=== PATIENT | female | born 1960 | race American Indian/Alaskan Native ===

== ENCOUNTER 2020-12-03 09:46 | Inpatient (IN) | payer MEDICARE ==
--- NOTE | 2020-12-03 10:21 | Emergency Department Report ---
ED Chest Pain HPI - General Chief Complaint: Chest Pain Stated Complaint: CHEST PAIN Time Seen by Provider: 12/03/20 10:00 Source: patient, EMS Mode of arrival: Stretcher Limitations: No Limitations - History of Present Illness Initial Comments: This is a 60-year-old -[place] female presents to the emergency department via EMS from home with complaint of midsternal to left-sided chest pain with radiation to the neck that started around 7:30 AM this morning and woke her from sleep. At the time the patient says that the pain was worse with any type of exertion as she tried to make her bed. It is associated with some shortness of breath and diaphoresis. She did not take anything for symptoms prior to presentation but did receive a sublingual nitroglycerin and a full dose aspirin in route with EMS. At the time of my examination the patient says that her chest pain is about 5 out of 10 in intensity. No known alleviating factors. Patient was found to have a blood pressure of about 200/100 with EMS prior to the sublingual nitroglycerin. She has been out of her blood pressure medications for the past 4 to 5 days. Denies any tobacco or illicit drug use. No recent travel or sick contacts at home. - Related Data Allergies Allergy/AdvReac Type Severity Reaction Status Date / Time No Known Allergies Allergy Unverified 12/03/20 09:58 Heart Score - HEART Score History: Moderately suspicious EKG: Normal Age: 45-65 Risk factors: 1-2 risk factors Troponin: < normal limit HEART Score: 3 - EKG Read Time Time EKG Completed: 10:33 EKG Read Time: 10:35 - Critical Actions Critical Actions: 0-3 pts:0.9-1.7%risk of adverse cardiac event.Candidate for discharge ED Review of Systems ROS: Stated complaint: CHEST PAIN Other details as noted in HPI Comment: All other systems reviewed and negative Constitutional: diaphoresis. denies: fever Eyes: denies: eye pain, vision change ENT: denies: ear pain, throat pain Respiratory: shortness of breath. denies: cough Cardiovascular: chest pain. denies: palpitations, edema Gastrointestinal: denies: abdominal pain, vomiting Genitourinary: denies: dysuria, discharge Musculoskeletal: denies: back pain, arthralgia Skin: denies: rash, lesions Neurological: denies: headache, weakness ED Past Medical Hx - Past Medical History Previous Medical History?: Yes Hx Hypertension: Yes Additional medical history: Lupus - Social History Smoking Status: Never Smoker ED Physical Exam - General Limitations: No Limitations - Other Other exam information: GENERAL: The patient is well-developed well-nourished. HENT: Normocephalic. Atraumatic. Patient has moist mucous membranes. EYES: Extraocular motions are intact. NECK: Supple. Trachea is midline. CHEST/LUNGS: Clear to auscultation. There is no respiratory distress noted. HEART/CARDIOVASCULAR: Regular. There is no tachycardia. There is no murmur. ABDOMEN: Abdomen is soft, nontender. Patient has normal bowel sounds. There is no abdominal distention. SKIN: Skin is warm and dry. NEURO: The patient is awake, alert, and oriented. The patient is cooperative. The patient has no focal neurologic deficits. Normal speech. MUSCULOSKELETAL: There is no tenderness or deformity. There is no limitation range of motion. ED Course Vital Signs 12/03/20 12/03/20 09:48 10:42 Temperature 97.5 F L Pulse Rate 72 88 Respiratory 16 Rate Blood Pressure 160/80 O2 Sat by Pulse 95 Oximetry JEREMY score - Jeremy Score Age > 65: (0) No Aspirin use within the Past 7 Days: (0) No 3 or more CAD Risk Factors: (0) No 2 or more Angina events in past 24 hrs: (1) Yes Known CAD with more than 50% Stenosis: (0) No Elevated Cardiac Markers: (0) No ST Deviation Greater than 0.5mm: (0) No JEREMY Score: 1 ED Medical Decision Making - Lab Data Result diagrams: 12/03/20 10:42 12/03/20 10:42 Lab Results 12/03/20 12/03/20 12/03/20 Range/Units 10:42 10:42 10:42 WBC 4.6 (4.5-11.0) K/mm3 RBC 3.59 L (3.65-5.03) M/mm3 Hgb 10.4 (10.1-14.3) gm/dl Hct 31.1 (30.3-42.9) % MCV 87 (79-97) fl MCH 29 (28-32) pg MCHC 33 (30-34) % RDW 14.8 (13.2-15.2) % Plt Count 320 (140-440) K/mm3 Lymph % (Auto) 26.3 (13.4-35.0) % [place] % (Auto) 10.6 H (0.0-7.3) % Eos % (Auto) 0.6 (0.0-4.3) % Baso % (Auto) 0.7 (0.0-1.8) % Lymph # (Auto) 1.2 (1.2-5.4) K/mm3 [place] # (Auto) 0.5 (0.0-0.8) K/mm3 Eos # (Auto) 0.0 (0.0-0.4) K/mm3 Baso # (Auto) 0.0 (0.0-0.1) K/mm3 Seg Neutrophils % 61.8 (40.0-70.0) % Seg Neutrophils # 2.9 (1.8-7.7) K/mm3 D-Dimer 149.05 (0-234) ng/mlDDU Sodium 143 (137-145) mmol/L Potassium 4.1 (3.6-5.0) mmol/L Chloride 104.2 (98-107) mmol/L Carbon Dioxide 26 (22-30) mmol/L Anion Gap 17 mmol/L BUN 20 H (7-17) mg/dL Creatinine 0.8 (0.6-1.2) mg/dL Estimated GFR > 60 ml/min BUN/Creatinine Ratio 25 % Glucose 92 (65-100) mg/dL Calcium 8.9 (8.4-10.2) mg/dL Total Bilirubin 0.30 (0.1-1.2) mg/dL AST 19 (5-40) units/L ALT 12 (7-56) units/L Alkaline Phosphatase 44 (35-129) units/L Troponin T < 0.010 (0.00-0.029) ng/mL Total Protein 7.8 (6.3-8.2) g/dL Albumin 4.3 (3.9-5) g/dL Albumin/Globulin Ratio 1.2 % - EKG Data -: EKG Interpreted by Mt EKG shows normal: sinus rhythm, axis, intervals, QRS complexes, ST-T waves Rate: bradycardia (56 bpm) - EKG Data When compared to previous EKG there are: previous EKG unavailable Interpretation: normal EKG - Radiology Data Radiology results: image reviewed interpreted by me: Chest x-ray does not show any acute process. There are no pleural effusions, obvious pneumonia and there is no pneumothorax. No significant cardiomegaly. - Medical Decision Making This patient woke from sleep with some left-sided chest pain with radiation towards her neck. She also had a very elevated blood pressure with a systolic of greater than 200. She was given full dose aspirin and a sublingual nitroglycerin. EKG did not have any morphology consistent with ST elevation myocardial infarction. Chest x-ray does not show any pneumonia, pleural effusions, pneumothorax, or any acute process. Patient's labs have been unremarkable thus far including CBC, metabolic panel and a negative troponin. Patient has a moderate heart score. She was given some IV analgesia and blood pressure control. She still continues to have some discomfort. For these reasons the patient will be admitted to the hospital for further evaluation and treatment and was accepted for admission by the hospitalist, Dr. Sheehan. Critical Care Time: No Critical care attestation.: If time is entered above; I have spent that time in minutes in the direct care of this critically ill patient, excluding procedure time. ED Disposition Clinical Impression: Acute chest pain Hypertension Qualifiers: Hypertension type: essential hypertension Qualified Code(s): I10 - Essential (primary) hypertension Disposition: OP ADMIT IP TO THIS HOSP Is pt being admited?: Yes Condition: Fair Instructions: Chest Pain (ED), Hypertension (ED) Time of Disposition: 13:00
--- NOTE | 2020-12-03 11:02 | XRay Report ---
CHEST 1 VIEW 12/03/2020 10:27 AM INDICATION / CLINICAL INFORMATION: CP. COMPARISON: None available. FINDINGS: SUPPORT DEVICES: None. HEART / MEDIASTINUM: No significant abnormality. LUNGS / PLEURA: No significant pulmonary or pleural abnormality. No pneumothorax. ADDITIONAL FINDINGS: No significant additional findings. IMPRESSION: 1. No acute findings. Signer Name: Hipolito Kearney MD Signed: 12/03/2020 10:57 AM Workstation Name: [email or web address]
[2020-12-03 11:23] LABS: Basophils % (Auto) 0.7 % (0.0-1.8); Eosinophils % (Auto) 0.6 % (0.0-4.3); Hematocrit 31.1 % (30.3-42.9); Hemoglobin 10.4 gm/dl (10.1-14.3); Lymphocytes # (Auto) 1.2 K/mm3 (1.2-5.4); Lymphocytes % (Auto) 26.3 % (13.4-35.0); Mean Corpuscular HGB Conc 33 % (30-34); Mean Corpuscular Volume 87 fl (79-97); Monocytes # (Auto) 0.5 K/mm3 (0.0-0.8); Monocytes % (Auto) 10.6 % (0.0-7.3); Platelet Count 320 K/mm3 (140-440); Red Blood Count 3.59 M/mm3 (3.65-5.03); Red Cell Distribution Width 14.8 % (13.2-15.2)
[2020-12-03 12:00] LABS: Alanine Aminotransferase 12 units/L (7-56); Albumin 4.3 g/dL (3.9-5); BUN/Creatinine Ratio 25; Blood Urea Nitrogen 20 mg/dL (7-17); Calcium 8.9 mg/dL (8.4-10.2); Hemolysis Index 1
[2020-12-03] MEDS ORDERED: METOPROLOL TARTRATE 5 MG/5 ML INJ IV ONE (12:19)
[2020-12-03] MEDS ORDERED: MORPHINE 4 MG/1 ML INJ IV ONE (12:19)
--- NOTE | 2020-12-03 23:17 | History and Physical Report ---
History of Present Illness Date of examination: 12/03/20 Date of admission: 12/03/20 13:01 Chief complaint: Chest pain for 1 day History of present illness: 60-year-old -Finnish female with history of hypertension and lupus comes in for left-sided chest pain and retrosternal chest pain that started around 730 this morning. Woke her up from sleep. Pain is intermittent. Pain is about 8 on a scale of 1-10. Blood pressure is also high at the time of admission to the emergency room. Blood pressure was 200/100. Patient states that she is compliant with her blood pressure medications. Patient did not have any stents in the past. No exposure to coronavirus. Heart Score - HEART Score History: Moderately suspicious EKG: Normal Age: 45-65 Risk factors: 1-2 risk factors Troponin: < normal limit HEART Score: 3 - EKG Read Time EKG normal sinus rhythm LVH by voltage criteria no acute ST-T wave changes EKG Completed: 10:33 - Critical Actions Critical Actions: 0-3 pts:0.9-1.7%risk of adverse cardiac event.Candidate for discharge - Past Medical History Previous Medical History?: Yes Hx Hypertension: Yes Additional medical history: Lupus past surgical history none family history - Social History Smoking Status: Never Smoker family history HTN Review of Systems ROS: Stated complaint: CHEST PAIN Other details as noted in HPI Comment: All other systems reviewed and negative Constitutional: diaphoresis. denies: fever Eyes: denies: eye pain, vision change ENT: denies: ear pain, throat pain Respiratory: shortness of breath. denies: cough Cardiovascular: chest pain. denies: palpitations, edema Gastrointestinal: denies: abdominal pain, vomiting Genitourinary: denies: dysuria, discharge Musculoskeletal: denies: back pain, arthralgia Skin: denies: rash, lesions Neurological: denies: headache, weakness Medications and Allergies Allergies Allergy/AdvReac Type Severity Reaction Status Date / Time No Known Allergies Allergy Verified 12/03/20 23:36 Home Medications Medication Instructions Recorded Confirmed Last Taken Type No Known Home Medications [No 12/05/20 12/05/20 Unknown History Reported Home Medications] Exam - Constitutional Vitals: Temp Pulse Resp BP Pulse Ox 97.6 F 56 L 16 125/48 100 12/03/20 20:48 12/03/20 20:48 12/03/20 20:48 12/03/20 20:48 12/03/20 20:48 General appearance: Present: no acute distress, well-nourished - EENT Eyes: Present: PERRL ENT: hearing intact, clear oral mucosa - Neck Neck: Present: supple, normal ROM - Respiratory Respiratory effort: normal Respiratory: bilateral: CTA - Cardiovascular Heart rate: 78 Rhythm: regular Heart Sounds: Present: S1 & S2. Absent: rub, click - Extremities Extremities: pulses symmetrical, No edema Peripheral Pulses: within normal limits - Abdominal General gastrointestinal: Present: soft, non-tender, non-distended, normal bowel sounds Female genitourinary: Present: normal - Integumentary Integumentary: Present: clear, warm, dry - Musculoskeletal Musculoskeletal: gait normal, strength equal bilaterally - Psychiatric Psychiatric: appropriate mood/affect, intact judgment & insight - Neurologic Neurologic: CNII-XII intact, moves all extremities HEART Score - HEART Score EKG: Normal Age: 45-65 Risk factors: 1-2 risk factors Troponin: Troponin T < 0.010 ng/mL (0.00-0.029) 12/03/20 16:30 Troponin: < normal limit - Critical Actions Critical Actions: 0-3 pts:0.9-1.7%risk of adverse cardiac event.Candidate for discharge Results - Labs CBC & Chem 7: 12/05/20 04:07 12/05/20 04:07 Labs: Laboratory Last Values WBC 4.6 K/mm3 (4.5-11.0) 12/03/20 10:42 RBC 3.59 M/mm3 (3.65-5.03) L 12/03/20 10:42 Hgb 10.4 gm/dl (10.1-14.3) 12/03/20 10:42 Hct 31.1 % (30.3-42.9) 12/03/20 10:42 MCV 87 fl (79-97) 12/03/20 10:42 MCH 29 pg (28-32) 12/03/20 10:42 MCHC 33 % (30-34) 12/03/20 10:42 RDW 14.8 % (13.2-15.2) 12/03/20 10:42 Plt Count 320 K/mm3 (140-440) 12/03/20 10:42 Lymph % (Auto) 26.3 % (13.4-35.0) 12/03/20 10:42 [place] % (Auto) 10.6 % (0.0-7.3) H 12/03/20 10:42 Eos % (Auto) 0.6 % (0.0-4.3) 12/03/20 10:42 Baso % (Auto) 0.7 % (0.0-1.8) 12/03/20 10:42 Lymph # (Auto) 1.2 K/mm3 (1.2-5.4) 12/03/20 10:42 [place] # (Auto) 0.5 K/mm3 (0.0-0.8) 12/03/20 10:42 Eos # (Auto) 0.0 K/mm3 (0.0-0.4) 12/03/20 10:42 Baso # (Auto) 0.0 K/mm3 (0.0-0.1) 12/03/20 10:42 Seg Neutrophils % 61.8 % (40.0-70.0) 12/03/20 10:42 Seg Neutrophils # 2.9 K/mm3 (1.8-7.7) 12/03/20 10:42 D-Dimer 149.05 ng/mlDDU (0-234) 12/03/20 10:42 Sodium 143 mmol/L (137-145) 12/03/20 10:42 Potassium 4.1 mmol/L (3.6-5.0) 12/03/20 10:42 Chloride 104.2 mmol/L (98-107) 12/03/20 10:42 Carbon Dioxide 26 mmol/L (22-30) 12/03/20 10:42 Anion Gap 17 mmol/L 12/03/20 10:42 BUN 20 mg/dL (7-17) H 12/03/20 10:42 Creatinine 0.8 mg/dL (0.6-1.2) 12/03/20 10:42 Estimated GFR > 60 ml/min 12/03/20 10:42 BUN/Creatinine Ratio 25 % 12/03/20 10:42 Glucose 92 mg/dL (65-100) 12/03/20 10:42 Calcium 8.9 mg/dL (8.4-10.2) 12/03/20 10:42 Total Bilirubin 0.30 mg/dL (0.1-1.2) 12/03/20 10:42 AST 19 units/L (5-40) 12/03/20 10:42 ALT 12 units/L (7-56) 12/03/20 10:42 Alkaline Phosphatase 44 units/L (35-129) 12/03/20 10:42 Troponin T < 0.010 ng/mL (0.00-0.029) 12/03/20 16:30 Total Protein 7.8 g/dL (6.3-8.2) 12/03/20 10:42 Albumin 4.3 g/dL (3.9-5) 12/03/20 10:42 Albumin/Globulin Ratio 1.2 % 12/03/20 10:42 Short CBC 12/05/20 Range/Units 04:07 WBC 4.7 (4.5-11.0) K/mm3 Hgb 9.4 L (10.1-14.3) gm/dl Hct 28.8 L (30.3-42.9) % Plt Count 305 (140-440) K/mm3 BMP 12/05/20 04:07 Sodium 139 Potassium 4.1 Chloride 105.0 Carbon Dioxide 28 BUN 14 Creatinine 0.8 Glucose 93 Calcium 8.5 - Imaging and Cardiology EKG: report reviewed (Sinus rhythm, LVH by voltage criteria) Assessment and Plan Advance Directives: Yes - Patient Problems (1) Acute coronary syndrome Current Visit: Yes Status: Acute Plan to address problem: Chest pain work-up Patient to get Lexiscan tomorrow morning Serial troponins (2) Hypertension Current Visit: Yes Status: Acute Qualifiers: Hypertension type: essential hypertension Qualified Code(s): I10 - Essential (primary) hypertension Plan to address problem: Patient initial blood pressure was high but normalized in the emergency room We will trend the blood pressure and initiate initiate bladder BP medications as necessary Patient on amlodipine 10 mg once a day (3) DVT prophylaxis Current Visit: Yes Status: Acute Plan to address problem: On heparin and GI prophylaxis
[2020-12-03] MEDS ORDERED: MORPHINE 2 MG/1 ML INJ IV PRN (23:19)
[2020-12-03] MEDS ORDERED: ONDANSETRON 4 MG/2 ML INJ IV PRN (23:19)
[2020-12-03] MEDS ORDERED: ACETAMINOPHEN 325 MG TAB PO PRN (23:19)
[2020-12-03] MEDS ORDERED: oxyCODONE /ACETAMINOPHEN 5-325MG TAB PO PRN (23:19)
[2020-12-03] MEDS ORDERED: ZOLPIDEM 5 MG TAB PO PRN (23:19)
[2020-12-04] MEDS: HEPARIN 5,000 UNIT/1 ML VIAL SUB-Q SCH ×3 (05:23→22:12)
[2020-12-04] MEDS: SODIUM CHLORIDE 0.9% 1000 ML 1,000 ML IV SCH (05:24)
[2020-12-04 06:26] LABS: Alanine Aminotransferase 10 units/L (7-56); Albumin 3.6 g/dL (3.9-5); BUN/Creatinine Ratio 25; Blood Urea Nitrogen 20 mg/dL (7-17); Calcium 8.4 mg/dL (8.4-10.2); Hemolysis Index 10
[2020-12-04] MEDS: FAMOTIDINE 20 MG TAB PO SCH ×2 (10:20→22:12)
--- NOTE | 2020-12-04 11:32 | Consultation ---
History of Present Illness Consult date: 12/04/20 Consult reason: chest pain History of present illness: Patient is a 60-year old F admitted with chest pain. Chest pain is poorly characterized, intermittent for several weeks, at times on exertion. Noted hypertensive on presentation with a systolic BP of 160. An ECG is sinus bradycardia, rate 56, otherwise normal. Chest x-ray was normal. Cycled troponin measurements were also normal. Medications and Allergies Allergies Allergy/AdvReac Type Severity Reaction Status Date / Time No Known Allergies Allergy Verified 12/03/20 23:36 Active Meds: Active Medications Acetaminophen (Acetaminophen 325 Mg Tab) 650 mg PO Q4H PRN PRN Reason: Pain MILD(1-3)/Fever >100.5/GACRIA Famotidine (Famotidine 20 Mg Tab) 20 mg PO BID [facility] Last Admin: 12/04/20 10:20 Dose: 20 mg Documented by: Heparin Sodium (Porcine) (Heparin 5,000 Unit/1 Ml Vial) 5,000 unit SUB-Q Q12HR [facility] Last Admin: 12/04/20 10:21 Dose: 5,000 unit Documented by: Sodium Chloride (Nacl 0.9% 1000 Ml) 1,000 mls @ 42 mls/hr IV DIRECT [facility] Last Admin: 12/04/20 05:24 Dose: 42 mls/hr Documented by: Morphine Sulfate (Morphine 2 Mg/1 Ml Inj) 2 mg IV Q4H PRN PRN Reason: Pain, Moderate (4-6) Ondansetron HCl (Ondansetron 4 Mg/2 Ml Inj) 4 mg IV Q8H PRN PRN Reason: Nausea And Vomiting Oxycodone/Acetaminophen (Oxycodone /Acetaminophen 5-325mg Tab) 1 tab PO Q6H PRN PRN Reason: Pain, Moderate (4-6) Sodium Chloride (Sodium Chloride 0.9% 10 Ml Flush Syringe) 10 ml IV BID [facility] Last Admin: 12/04/20 10:21 Dose: 10 ml Documented by: Sodium Chloride (Sodium Chloride 0.9% 10 Ml Flush Syringe) 10 ml IV PRN PRN PRN Reason: LINE FLUSH Zolpidem Tartrate (Zolpidem 5 Mg Tab) 5 mg PO QHS PRN PRN Reason: Insomnia Physical Examination Vital Signs Temp Pulse Resp BP Pulse Ox 97.5 F L 72 16 160/80 95 12/03/20 09:48 12/03/20 09:48 12/03/20 09:48 12/03/20 09:48 12/03/20 09:48 Results 12/03/20 10:42 12/04/20 04:48 Cardiac Enzymes 12/03/20 12/04/20 Range/Units 10:42 04:48 AST 19 17 (5-40) units/L Comprehensive Metabolic Panel 12/03/20 12/04/20 Range/Units 10:42 04:48 Sodium 143 137 (137-145) mmol/L Potassium 4.1 4.0 (3.6-5.0) mmol/L Chloride 104.2 102.2 (98-107) mmol/L Carbon Dioxide 26 26 (22-30) mmol/L BUN 20 H 20 H (7-17) mg/dL Creatinine 0.8 0.8 (0.6-1.2) mg/dL Glucose 92 94 (65-100) mg/dL Calcium 8.9 8.4 (8.4-10.2) mg/dL AST 19 17 (5-40) units/L ALT 12 10 (7-56) units/L Alkaline Phosphatase 44 41 (35-129) units/L Total Protein 7.8 6.9 (6.3-8.2) g/dL Albumin 4.3 3.6 L (3.9-5) g/dL
--- NOTE | 2020-12-04 11:32 | Consultation ---
History of Present Illness Consult date: 12/04/20 Consult reason: chest pain History of present illness: The patient is a 60-year-old woman with history of chronic hypertension, no p rior cardiac history. She presented to the hospital with chest pain which she states woke her up from sleep. The pain was located in the left chest, radiated to the left arm and up into the left side of her face. In addition, she states that over the past several weeks, the pain has frequently recurred in association with exertional activities such as walking. She was seen in the emergency room, evaluated and referred for admission. EKG in the emergency was a sinus bradycardia 56, otherwise normal ECG with no ST changes of ischemia. Serial troponin levels x3 were normal. She was ordered for an exercise thallium stress test which is pending. Past History Past Medical History: hypertension Medications and Allergies Allergies Allergy/AdvReac Type Severity Reaction Status Date / Time No Known Allergies Allergy Verified 12/03/20 23:36 Active Meds: Active Medications Acetaminophen (Acetaminophen 325 Mg Tab) 650 mg PO Q4H PRN PRN Reason: Pain MILD(1-3)/Fever >100.5/GARCIA Famotidine (Famotidine 20 Mg Tab) 20 mg PO BID [facility] Last Admin: 12/04/20 10:20 Dose: 20 mg Documented by: Heparin Sodium (Porcine) (Heparin 5,000 Unit/1 Ml Vial) 5,000 unit SUB-Q Q12HR [facility] Last Admin: 12/04/20 10:21 Dose: 5,000 unit Documented by: Sodium Chloride (Nacl 0.9% 1000 Ml) 1,000 mls @ 42 mls/hr IV DIRECT [facility] Last Admin: 12/04/20 05:24 Dose: 42 mls/hr Documented by: Morphine Sulfate (Morphine 2 Mg/1 Ml Inj) 2 mg IV Q4H PRN PRN Reason: Pain, Moderate (4-6) Ondansetron HCl (Ondansetron 4 Mg/2 Ml Inj) 4 mg IV Q8H PRN PRN Reason: Nausea And Vomiting Oxycodone/Acetaminophen (Oxycodone /Acetaminophen 5-325mg Tab) 1 tab PO Q6H PRN PRN Reason: Pain, Moderate (4-6) Sodium Chloride (Sodium Chloride 0.9% 10 Ml Flush Syringe) 10 ml IV BID [facility] Last Admin: 12/04/20 10:21 Dose: 10 ml Documented by: Sodium Chloride (Sodium Chloride 0.9% 10 Ml Flush Syringe) 10 ml IV PRN PRN PRN Reason: LINE FLUSH Zolpidem Tartrate (Zolpidem 5 Mg Tab) 5 mg PO QHS PRN PRN Reason: Insomnia Review of Systems Cardiovascular: chest pain, shortness of breath, no orthopnea, no palpitations, no rapid/irregular heart beat, no edema, no syncope, no lightheadedness Physical Examination Vital Signs Temp Pulse Resp BP Pulse Ox 97.5 F L 72 16 160/80 95 12/03/20 09:48 12/03/20 09:48 12/03/20 09:48 12/03/20 09:48 12/03/20 09:48 General appearance: no acute distress HEENT: Positive: PERRL Neck: Positive: neck supple, trachea midline Cardiac: Positive: Reg Rate and Rhythm Lungs: Positive: clear to auscultation Neuro: Positive: Grossly Intact Abdomen: Positive: Soft Female genitourinary: deferred Skin: Positive: Clear Extremities: Absent: edema Results 12/03/20 10:42 12/04/20 04:48 Cardiac Enzymes 12/03/20 12/04/20 Range/Units 10:42 04:48 AST 19 17 (5-40) units/L Comprehensive Metabolic Panel 12/03/20 12/04/20 Range/Units 10:42 04:48 Sodium 143 137 (137-145) mmol/L Potassium 4.1 4.0 (3.6-5.0) mmol/L Chloride 104.2 102.2 (98-107) mmol/L Carbon Dioxide 26 26 (22-30) mmol/L BUN 20 H 20 H (7-17) mg/dL Creatinine 0.8 0.8 (0.6-1.2) mg/dL Glucose 92 94 (65-100) mg/dL Calcium 8.9 8.4 (8.4-10.2) mg/dL AST 19 17 (5-40) units/L ALT 12 10 (7-56) units/L Alkaline Phosphatase 44 41 (35-129) units/L Total Protein 7.8 6.9 (6.3-8.2) g/dL Albumin 4.3 3.6 L (3.9-5) g/dL EKG interpretations - Telemetry EKG Rhythm: Sinus Bradycardia (Otherwise normal ECG) Assessment and Plan - Patient Problems (1) Chest pain Current Visit: Yes Status: Acute Plan to address problem: Patients presents with chest pain with a possible exertional component, but ECGs are not troponin levels are normal. We will proceed with an exercise thallium stress test for further chest pain assessment. Further cardiac evaluation will depend on the findings of the stress test.
[2020-12-04] MEDS ORDERED: FLU VACC QUAD 2020-2021 (6 months +)/PF 60 0.5 ML SYRINGE IM ONE (12:00)
[2020-12-04] MEDS ORDERED: NITROGLYCERIN 0.4 MG TAB SUBL SL ONE ×2 (13:42→14:47)
--- NOTE | 2020-12-04 13:44 | Event Note ---
Date: 12/04/20 The patient exercised for less than 2 minutes of a New protocol, developed what she describes as chest tightness, and the blood pressure shot up to 190 systolic. EKG showed no ischemic changes, but we stopped the exercise study due to poor exercise tolerance, hypertensive response to exercise and the development of chest pain. The patient will instead be recommended to undergo diagnostic heart catheterization for further cardiac assessment. Cardiac catheterization is scheduled for tomorrow morning.
[2020-12-04] MEDS ORDERED: SODIUM CHLORIDE 0.9% 500 ML 500 ML IV SCH (14:00)
[2020-12-04] MEDS: METOPROLOL TARTRATE 25 MG TAB PO SCH ×2 (14:21→22:11)
[2020-12-04] MEDS: amLODIPine 5 MG TAB PO SCH (14:21)
[2020-12-04] MEDS: ASPIRIN EC 325 MG TAB PO SCH (14:21)
[2020-12-04] MEDS: NITROGLYCERIN 2% OINT 1 GM TP SCH ×2 (14:22→17:16)
--- NOTE | 2020-12-04 17:21 | Progress Note ---
Assessment and Plan - Patient Problems (1) Acute coronary syndrome Current Visit: Yes Status: Acute Plan to address problem: Chest pain work-up Patient to get Lexiscan tomorrow morning Serial troponins (2) Hypertension Current Visit: Yes Status: Acute Qualifiers: Hypertension type: essential hypertension Qualified Code(s): I10 - Essential (primary) hypertension Plan to address problem: Patient initial blood pressure was high but normalized in the emergency room We will trend the blood pressure and initiate initiate bladder BP medications as necessary Patient on amlodipine 10 mg once a day (3) DVT prophylaxis Current Visit: Yes Status: Acute Plan to address problem: On heparin and GI prophylaxis Subjective Date of service: 12/04/20 Principal diagnosis: Acute coronary syndrome Interval history: 60-year-old -[place] female with history of hypertension and lupus comes in for left-sided chest pain and retrosternal chest pain that started around 730 this morning. Woke her up from sleep. Pain is intermittent. Pain is about 8 on a scale of 1-10. Blood pressure is also high at the time of admission to the emergency room. Blood pressure was 200/100. Patient states that she is compliant with her blood pressure medications. Patient did not have any stents in the past. No exposure to coronavirus. Day #2 12/04/2020 Patient had a high blood pressure response with stress test 2 minutes into the stress test Decided to do cardiac cath by Dr. Faust Objective - Constitutional Vitals: Vital Signs - 12hr 12/04/20 12/04/20 12/04/20 08:25 09:00 10:00 Temperature 97.7 F Pulse Rate 56 L 60 Pulse Rate [ 60 Left Radial] Pulse Rate [ 62 Right Radial] Respiratory 18 19 Rate Blood Pressure 145/62 O2 Sat by Pulse 100 Oximetry 12/04/20 12/04/20 12/04/20 13:47 14:13 14:21 Temperature Pulse Rate 67 68 62 Pulse Rate [ Left Radial] Pulse Rate [ Right Radial] Respiratory Rate Blood Pressure 191/65 178/87 178/87 O2 Sat by Pulse 100 Oximetry 12/04/20 12/04/20 12/04/20 14:22 16:00 16:40 Temperature 98.9 F 97.3 F L Pulse Rate 62 53 L Pulse Rate [ Left Radial] Pulse Rate [ Right Radial] Respiratory 18 18 Rate Blood Pressure 178/87 125/57 O2 Sat by Pulse 100 Oximetry 12/04/20 17:16 Temperature Pulse Rate 66 Pulse Rate [ Left Radial] Pulse Rate [ Right Radial] Respiratory Rate Blood Pressure 127/67 O2 Sat by Pulse Oximetry General appearance: Present: no acute distress, well-nourished - EENT Eyes: PERRL, EOM intact ENT: hearing intact, clear oral mucosa Ears: bilateral: normal - Neck Neck: supple, normal ROM - Respiratory Respiratory effort: normal Respiratory: bilateral: CTA - Breasts Breasts: normal - Cardiovascular Heart rate: 78 Rhythm: regular Heart Sounds: Present: S1 & S2. Absent: gallop, rub Extremities: pulses intact, No edema, normal color, Full ROM - Gastrointestinal General gastrointestinal: Present: soft, non-tender, non-distended, normal bowel sounds - Genitourinary Female genitourinary: normal - Integumentary Integumentary: clear, warm, dry - Musculoskeletal Musculoskeletal: 1, strength equal bilaterally - Neurologic Neurologic: moves all extremities - Psychiatric Psychiatric: memory intact, appropriate mood/affect, intact judgment & insight - Labs CBC & Chem 7: 12/05/20 04:07 12/05/20 04:07 Labs: Abnormal lab results 12/04/20 Range/Units 04:48 BUN 20 H (7-17) mg/dL Albumin 3.6 L (3.9-5) g/dL HEART Score - HEART Score EKG: Normal Age: 45-65 Risk factors: 1-2 risk factors Troponin: Troponin T < 0.010 ng/mL (0.00-0.029) 12/03/20 16:30 Troponin: < normal limit - Critical Actions Critical Actions: 0-3 pts:0.9-1.7%risk of adverse cardiac event.Candidate for discharge
[2020-12-05 04:46] LABS: Hematocrit 28.8 % (30.3-42.9); Hemoglobin 9.4 gm/dl (10.1-14.3); Mean Corpuscular HGB Conc 33 % (30-34); Mean Corpuscular Volume 87 fl (79-97); Platelet Count 305 K/mm3 (140-440); Red Blood Count 3.31 M/mm3 (3.65-5.03); Red Cell Distribution Width 14.8 % (13.2-15.2)
[2020-12-05 04:59] LABS: INR 1.13 (0.87-1.13)
[2020-12-05 05:00] LABS: Partial Thromboplastin Time 44.2 Sec. (24.2-36.6)
[2020-12-05 05:05] LABS: BUN/Creatinine Ratio 18; Blood Urea Nitrogen 14 mg/dL (7-17); Calcium 8.5 mg/dL (8.4-10.2); Hemolysis Index 2
[2020-12-05] MEDS: NITROGLYCERIN 2% OINT 1 GM TP SCH ×3 (05:18→18:52)
[2020-12-05] MEDS: SODIUM CHLORIDE 0.9% 1000 ML 1,000 ML IV SCH (06:06)
[2020-12-05] MEDS: ASPIRIN EC 325 MG TAB PO SCH ×2 (07:14→14:27)
[2020-12-05] MEDS ORDERED: HEPARIN/NS 5000 UNIT/500ML 1,000 ML IR ONE (08:23)
[2020-12-05] MEDS ORDERED: VERAPAMIL 5 MG/2 ML INJ ONE (08:24)
[2020-12-05] MEDS ORDERED: HEPARIN 10,000 UNITS/10 ML VIAL ONE (08:24)
[2020-12-05] MEDS ORDERED: NITROGLYCERIN SYRINGE 3 ML ONE (08:25)
[2020-12-05] MEDS ORDERED: LIDOCAINE (2%) 20 MG/1 ML VIAL 20 ML MDV INFILTRATI ONE (08:25)
[2020-12-05] MEDS ORDERED: MIDAZOLAM 2 MG/2 ML INJ ONE (08:44)
[2020-12-05] MEDS ORDERED: fentaNYL 100 MCG/2 ML INJ ONE (08:44)
[2020-12-05] MEDS ORDERED: NITROGLYCERIN 600 MCG/3 ML SYRINGE ART-SHEATH ONE (09:26)
--- NOTE | 2020-12-05 09:54 | Event Note ---
Date: 12/05/20 Patient underwent a cardiac catheterization, via the right radial approach, no complications. We found essentially angiographically normal coronary arteries, and well-preserved left ventricular systolic function, ejection fraction 50 to 55%. No further cardiac work-up, patient is stable for cardiac discharge. If indicated, patient should undergo work-up for noncardiac causes of chest pain.
[2020-12-05] MEDS ORDERED: SODIUM CHLORIDE 0.9% 1000 ML 1,000 ML IV SCH (10:00)
--- NOTE | 2020-12-05 10:02 | Cardiac Catherization Report ---
DATE OF SERVICE: 12/05/2020 REASON FOR STUDY: The patient is a 60-year-old woman who presented to the hospital with progressive, exertional chest pain. She had poor exercise tolerance on an exercise treadmill, complaining of chest pain, prompting a recommendation for cardiac catheterization. PROCEDURES PERFORMED: 1. Left heart catheterization. 2. Selective left and right coronary angiography. 3. Left ventricular angiography. 4. Sedation time start 0924 hours, end 0935 hours. I was present for the entire procedure and supervised with moderate sedation protocol. DESCRIPTION OF PROCEDURE: The patient was prepped and draped in a sterile fashion after informed consent. The right radial catheterization site was prepped and draped after a negative Rachid's test. The right radial artery was entered using Seldinger technique followed by placement of a 6-[place] hydrophilic sheath. Routine radial cocktail was administered via the sheath. Selective left and right coronary angiography was performed using a #3.5 left Zackary and a #4 right Zackary. The right Zackary was used for left ventricular angiography. Catheters were then removed, sheath removed and hemostasis achieved using a TR band. The patient was returned to the post-procedure unit in stable condition. There were no complications. FINDINGS: HEMODYNAMICS: Left ventricular end diastolic pressure was 17, following coronary angiography. The ascending aortic pressure was 167/64. There was no significant pressure gradient on pullback across the aortic valve. CORONARY ANGIOGRAPHY: Left main coronary artery was angiographically normal. The left anterior descending artery and its diagonal branches were angiographically normal. The circumflex artery and its obtuse marginal branches were angiographically normal. The right coronary artery contained mild eccentric narrowing of its mid segment, but otherwise angiographically normal. Left ventricular systolic function was at lower limits of normal, ejection fraction 50-55%. CONCLUSION: 1. Essentially angiographically normal coronary arteries. 2. Normal left ventricular systolic function, ejection fraction 50-55%. RECOMMENDATIONS: Risk factor modification, evaluate the patient if indicated for noncardiac chest pain. TID: [id number] RECEIPT: [id number] CA/KDA
[2020-12-05] MEDS ORDERED: traMADol 50 MG TAB PO PRN (10:30)
[2020-12-05] MEDS: FAMOTIDINE 20 MG TAB PO SCH (10:47)
[2020-12-05] MEDS: HEPARIN 5,000 UNIT/1 ML VIAL SUB-Q SCH (10:47)
[2020-12-05] MEDS: amLODIPine 5 MG TAB PO SCH (10:47)
[2020-12-05] MEDS: METOPROLOL TARTRATE 25 MG TAB PO SCH (14:27)
--- NOTE | 2020-12-05 16:54 | Discharge Summary ---
Providers - Providers Date of Admission: 12/04/20 15:00 Date of discharge: 12/05/20 Attending physician: ERIC WEBSTER 12/03/20 23:19 Consult to Physician [CONS] Routine Comment: Consulting Provider: EMMY KEY Physician Instructions: Reason For Exam: Acute coronary syndrome 12/05/20 09:51 Consult to Cardiac Rehabilitation [CONS] Routine Reason For Exam: Cardiac Rehab Evaluation Primary care physician: ANDROID UI DEVELOPER Hospitalization Condition: Fair Procedures: Cardiac cath Patient underwent a cardiac catheterization, via the right radial approach, no complications. We found essentially angiographically normal coronary arteries, and well-preserved left ventricular systolic function, ejection fraction 50 to 5 5%. No further cardiac work-up, patient is stable for cardiac discharge. If indicated, patient should undergo work-up for noncardiac causes of chest pain. Disposition: TO HOME OR SELFCARE Final Discharge Diagnosis (Prints w/discharge instructions): Acute coronary syndrome. GERD. Hypertension Time spent for discharge: 32 minutes - Discharge Diagnoses (1) Acute coronary syndrome Status: Acute Comment: Possible GERD (2) Hypertension Status: Acute Qualifiers: Hypertension type: essential hypertension Qualified Code(s): I10 - Essential (primary) hypertension (3) DVT prophylaxis Status: Acute Core Measure Documentation - Palliative Care Palliative Care/ Comfort Measures: Not Applicable - Core Measures Any of the following diagnoses?: none Exam - Constitutional Vitals: Temp Pulse Resp BP Pulse Ox 97.7 F 54 L 18 149/71 100 12/05/20 03:37 12/05/20 14:27 12/05/20 12:10 12/05/20 10:39 12/05/20 12:10 General appearance: Present: no acute distress, well-nourished - EENT Eyes: Present: PERRL ENT: hearing intact, clear oral mucosa - Neck Neck: Present: supple, normal ROM - Respiratory Respiratory effort: normal Respiratory: bilateral: CTA - Cardiovascular Heart rate: 78 Rhythm: regular Heart Sounds: Present: S1 & S2. Absent: rub, click - Extremities Extremities: pulses symmetrical, No edema Peripheral Pulses: within normal limits - Abdominal General gastrointestinal: Present: soft, non-tender, non-distended, normal bowel sounds Female genitourinary: Present: normal - Integumentary Integumentary: Present: clear, warm, dry - Musculoskeletal Musculoskeletal: gait normal, strength equal bilaterally - Psychiatric Psychiatric: appropriate mood/affect, intact judgment & insight - Neurologic Neurologic: CNII-XII intact, moves all extremities Plan Activity: no restrictions Diet: low salt Follow up with: PRIMARY CAREMD [Primary Care Provider] - 7 Days
[2020-12-05 17:00] VITALS: BP 138/55
--- NOTE | 2020-12-06 11:32 | Electrocardiograph Report ---
[facility] Test Date: 2020-12-03 Test Time: 10:33:25 Pat Name: VANNA OLEARY Department: Room: A474 Gender: F Rn Advanced: [id number] : 1960 Requested By: ALPA LUNDBERG Order Number: [id number] Reading MD: Willis Faust Measurements Intervals [place] Rate: 56 P: 71 [place]: 153 QRS: 75 QRSD: 73 T: 56 QT: 484 QTc: 469 Interpretive Statements Sinus bradycardia No previous ECG available for comparison Electronically Signed On 12-06-2020 11:32:41 EDT by Willis Faust
--- NOTE | 2020-12-06 12:05 | Electrocardiograph Report ---
[facility] Test Date: 2020-12-05 Test Time: 12:00:07 Pat Name: VANNA OLEARY Department: Room: A474 1 Gender: F Inspector [place]: TELLY : 1960 Requested By: WILLIS KEY Order Number: [id number] Reading MD: Willis Key Measurements Intervals [place] Rate: 52 P: 71 [place]: 152 QRS: 41 QRSD: 78 T: 33 QT: 518 QTc: 482 Interpretive Statements Sinus bradycardia Compared to ECG 12/03/2020 10:33:25 No significant changes Electronically Signed On 12-06-2020 12:04:57 EDT by Willis Key
== END 2020-12-05 19:45 | disposition home health service (06) | DRG 287 ==
LOC: ED 09:46 → 4A 13:01 → OBSVTOIN 12-04 15:00
PROVIDERS: ADMIT Internal Medicine; ATTEND Internal Medicine
PROC: 4A023N7 Measurement of Cardiac Sampling and Pressure, Left Heart, Percutaneous Approach (ICD-10-PCS; principal; 2020-12-05)
PROC: B2111ZZ Fluoroscopy of Multiple Coronary Arteries using Low Osmolar Contrast (ICD-10-PCS; 2020-12-05)
PROC: B2151ZZ Fluoroscopy of Left Heart using Low Osmolar Contrast (ICD-10-PCS; 2020-12-05)
DX: I24.9 Acute ischemic heart disease, unspecified (principal); I10 Essential (primary) hypertension; R00.1 Bradycardia, unspecified; K21.9 Gastro-esophageal reflux disease without esophagitis
CPT/HCPCS: 36415; 71045; 78452; 80048; 80053; 82962; 83036; 84484; 85025; 85027; 85379; 85610; 85730; 93005; 93458; G0378; A9502; C1894; J1644; J2250; J2270; J3010; J7030; Q9967

== ENCOUNTER 2021-05-22 11:33 | Outpatient (CLI) | payer MEDICARE ==
[2021-05-22 12:46] LABS: Basophils % (Auto) 0.9 % (0.0-1.8); Eosinophils % (Auto) 1.2 % (0.0-4.3); Hematocrit 33.2 % (30.3-42.9); Hemoglobin 10.4 gm/dl (10.1-14.3); Lymphocytes # (Auto) 1.3 K/mm3 (1.2-5.4); Mean Corpuscular HGB Conc 31 % (30-34); Mean Corpuscular Volume 87 fl (79-97); Monocytes # (Auto) 0.4 K/mm3 (0.0-0.8); Monocytes % (Auto) 10.1 % (0.0-7.3); Platelet Count 319 K/mm3 (140-440); Red Cell Distribution Width 14.3 % (13.2-15.2)
[2021-05-22 12:50] LABS: Alanine Aminotransferase 9 units/L (7-56); Albumin 4.3 g/dL (3.9-5); BUN/Creatinine Ratio 22; Blood Urea Nitrogen 20 mg/dL (7-17); Calcium 9.3 mg/dL (8.4-10.2); Chol/HDL Ratio 2.76 %; HDL Cholesterol 76 mg/dL (40-59); Hemolysis Index 6; LDL Cholesterol,Direct 129 mg/dL (50-130)
[2021-05-22 12:52] LABS: Bacteria,Urine 1+ /HPF (Negative); Bilirubin,Urine NEG (Negative); Blood,Urine NEG (Negative); Color,Urine Yellow (Yellow); Mucus,Urine FEW /HPF; Protein,Urine <15 mg/dL mg/dL (Negative); Urobilinogen,Urine < 2.0 mg/dL (<2.0)
[2021-05-22 13:02] LABS: Erythrocyte Sedimentation Rate 43 mm/Hr (0-20)
[2021-05-27 13:48] LABS: Vitamin D, 25-OH, D2 <4 ng/mL
== END 2021-05-22 11:34 | disposition home or self-care (01) ==
LOC: LAB 11:33
PROVIDERS: ATTEND Internal Medicine
DX: Z00.00 Encounter for general adult medical examination without abnormal findings (principal); Z13.220 Encounter for screening for lipoid disorders; Z13.29 Encounter for screening for other suspected endocrine disorder; E55.9 Vitamin D deficiency, unspecified; D64.9 Anemia, unspecified; M32.9 Systemic lupus erythematosus, unspecified; I10 Essential (primary) hypertension
CPT/HCPCS: 36415; 80053; 80061; 81001; 82306; 83036; 84443; 85025; 85652; 86140; 86225